=== PATIENT | female | born 1960 | race Two or more races ===

== ENCOUNTER 2019-03-29 06:10 | Day surgery (SDC) | payer SELFPAY ==
[2019-03-22 14:27] VITALS: BMI 24.6
[2019-03-29] MEDS ORDERED: SUCCINYLCHOLINE CHLORIDE 200 MG/10 ML SYRINGE ONE (07:28)
[2019-03-29] MEDS ORDERED: KETAMINE HCL 200 MG/20 ML VIAL ONE (07:28)
[2019-03-29] MEDS ORDERED: ROCURONIUM BROMIDE 50 MG/5 ML SYRINGE ONE ×2 (07:28→11:32)
[2019-03-29] MEDS ORDERED: PROPOFOL 20 ML ONE ×5 (07:28→14:31)
[2019-03-29] MEDS ORDERED: SODIUM CHLORIDE 0.9% P/F 10 ML VIAL IJ ONE (07:29)
[2019-03-29] MEDS ORDERED: DEXAMETHASONE SOD PHOSPHATE 4 MG/1 ML VIAL ONE (07:29)
[2019-03-29] MEDS ORDERED: LIDOCAINE HCL/PF 2% SDV 5ML VIAL ONE (07:29)
[2019-03-29] MEDS ORDERED: KETOROLAC TROMETHAMINE 30 MG/1 ML VIAL ONE (07:29)
[2019-03-29] MEDS ORDERED: ceFAZolin SODIUM 1 GM VIAL ONE ×3 (07:29→17:15)
[2019-03-29] MEDS ORDERED: ONDANSETRON 4 MG/2 ML VIAL ONE ×2 (07:29→17:08)
[2019-03-29] MEDS ORDERED: MIDAZOLAM HCL 2 MG/2 ML SINGLE DOSE VIAL ONE (07:44)
[2019-03-29] MEDS ORDERED: DEXMEDETOMIDINE HCL 200 MCG/2 ML IVPB ONE (07:44)
[2019-03-29] MEDS ORDERED: LIDOCAINE HCL 2% (20ML MULTI-DOSE VIAL) NR ONE (07:47)
[2019-03-29] MEDS ORDERED: SCOPOLAMINE HYDROBROMIDE 1 PATCH PATCH.TD72 ONE (08:01)
[2019-03-29] MEDS ORDERED: LIDOCAINE HCL 1% PRESERVATIVE FREE - 30ML VIAL ONE ×2 (09:04→09:40)
[2019-03-29] MEDS ORDERED: EPINEPHrine/PF 1 MG/1 ML (1:1,000) AMPULE ONE (09:04)
[2019-03-29] MEDS ORDERED: EPHEDRINE SULFATE/0.9% NACL/PF 50 MG/10 ML SYRINGE NR ONE (09:19)
[2019-03-29] MEDS ORDERED: DESFLURANE GAS 240 ML BOTTLE IH ONE (09:42)
[2019-03-29] MEDS ORDERED: BUPIVACAINE HCL 0.25% 125 MG/50 ML VIAL ONE (12:59)
[2019-03-29] MEDS ORDERED: PHENYLEPHRINE HCL 10 MG/1 ML SINGLE DOSE VIAL ONE (15:07)
[2019-03-29] MEDS ORDERED: GUM MASTIC/STORAX/MSAL/ALCOHOL 1 DRP DROPSBTL MC ONE (16:37)
[2019-03-29] MEDS ORDERED: BACITRACIN 15 GM TUBE TOPICAL OINTMENT ONE (17:14)
[2019-03-29] MEDS ORDERED: BUPIVACAINE HCL/PF 0.25% (2.5MG/ML) 10 ML VIAL IJ ONE (17:35)
[2019-03-29] MEDS ORDERED: oxyCODONE HCL 5 MG TABLET PO PRN ×2 (17:49→20:16)
[2019-03-29] MEDS ORDERED: ONDANSETRON 4 MG/2 ML VIAL IVPUSH PRN ×2 (17:49→20:08)
[2019-03-29] MEDS ORDERED: LACTATED RINGERS SOLUTION 1,000 ML IV SCH ×2 (18:00→20:15)
[2019-03-29] MEDS ORDERED: ACETAMINOPHEN 325 MG TABLET (FP) PO PRN (20:08)
[2019-03-29] MEDS ORDERED: DOCUSATE SODIUM 100 MG CAPSULE (FP) PO PRN (20:16)
[2019-03-29] MEDS ORDERED: HYDROmorphone HCl 2 MG/ML VIAL IVPB PRN (20:17)
[2019-03-29] MEDS ORDERED: DOXYCYCLINE HYCLATE 100 MG CAPSULE PO SCH (22:00)
[2019-03-29] MEDS: CEFAZOLIN 1 GM/D5W 1 GM/50 ML BAG IVPB SCH (22:23)
[2019-03-29] MEDS ORDERED: ENOXAPARIN NA (PORCINE) 40 MG/0.4 ML DISP.SYRIN SQ ONE (23:30)
[2019-03-30] MEDS: CEFAZOLIN 1 GM/D5W 1 GM/50 ML BAG IVPB SCH (05:24)
[2019-03-30 10:34] VITALS: BP 122/77; PULSE 90; TEMP 98.1
--- NOTE | 2019-04-08 09:45 | PATH ---
Surgical Pathology Report Patient Name: RUSSELL GOMEZ [facility]. Rec. #: [id number] /Age/Gender: 1960 (Age: 58) / F Account: [id number] Location: [facility], [facility] Taken: 03/29/2019 Received: 03/29/2019 Reported: 04/08/2019 Physicians: Kia Jane M.D. Specimen(s) Received A: BREAST TISSUE & SKIN LEFT 340 GMS B: BREAST TISSUE AND SKIN RIGHT 359 GMS Clinical History Bilateral breast hypertrophy Final Diagnosis A. BREAST TISSUE, LEFT, REDUCTION: BENIGN BREAST TISSUE. SKIN WITH NO PATHOLOGIC FINDINGS. B. BREAST, TISSUE, RIGHT, REDUCTION: BENIGN BREAST TISSUE. SKIN WITH NO PATHOLOGIC FINDINGS. Electronically Signed Ruthy Glover M.D. Gross Description A.Received in formalin, labeled "breast tissue and skin left 340 gms" and is a 16.5 x 15.5 x 4 cm aggregate of portions of fibroadipose tissue partially surfaced by light lincoln unremarkable skin. Sectioning reveals predominantly adipose tissue with focal white fibrotic foci and streaks. Line Camera Operator tissue submitted in two cassettes. B. Received in formalin, labeled "breast tissue and skin right 359 gms" and is a 17 x 16.5 x 4.2 cm aggregate of portions of fibroadipose tissue partially surfaced by light lincoln unremarkable skin. Sectioning reveals predominantly adipose tissue with focal white fibrotic foci and streaks. Line Camera Operator tissue submitted in two cassettes.
== END 2019-03-30 12:00 | disposition home or self-care (01) ==
LOC: FASU 06:10 → FM/S 17:00 → FASU 03-30 12:07
PROVIDERS: ATTEND Surgery
PROC: 0H0V0ZZ Alteration of Bilateral Breast, Open Approach (ICD-10-PCS; principal; 2019-03-29 09:52)
PROC: 0H0V3ZZ Alteration of Bilateral Breast, Percutaneous Approach (ICD-10-PCS; 2019-03-29 09:52)
DX: Z41.1 Encounter for cosmetic surgery (principal); N62 Hypertrophy of breast
CPT/HCPCS: 88305-TC; 94760